=== PATIENT | female | born 1995 | race Caucasian/White ===

== ENCOUNTER 2017-05-31 17:33 | Emergency (ER) | payer SELFPAY ==
[2017-05-31] MEDS ORDERED: Ondansetron INJ* 2 MG/ML VIAL IV ONE (18:01)
[2017-05-31] MEDS ORDERED: NS 0.9% 1000 ML* 1,000 ML IV ONE (18:01)
[2017-05-31] MEDS ORDERED: Lidocaine 1% MPF* 2 ML VIAL INJ ONE (18:54)
[2017-05-31] MEDS ORDERED: Lidocaine 1% INJ* 10 MG/ML 30 ML SDV ONE (18:55)
[2017-05-31] MEDS ORDERED: Lidocaine 1%* 5 ML VIAL ONE (18:57)
--- NOTE | 2017-05-31 19:27 | ED ---
Rosita Somers Rebecca, scribed for Gordon Tan MD on 05/31/17 at 1755 . Substance Abuse/Use - HPI Summary HPI Summary: Pt is a 21 y/o F BIBA from [place] who presents to ED c/o N/V secondary to EtOH intoxication. Pt reports that she drank too much today, leading to the current sx. Additionally notes a laceration to the L elbow. Denies any other trauma. IV access obtained REMARKETING REP by EMS. - History Of Current Complaint Stated Complaint: ETOH Time Seen by Provider: 05/31/17 17:54 Hx Obtained From: Patient Ingestion History: Type/Name Of Drug - EtOH Overdose Characteristics: Oral Timing Of Abuse: Binge Use - Today Character: Other - Nauseous Associated Signs And Symptoms: Nausea, Vomiting, Other: - Laceration to the L elbow - Allergies/Home Medications Allergies/Adverse Reactions: Allergies Allergy/AdvReac Type Severity Reaction Status Date / Time No Known Allergies Allergy Verified 05/31/17 18:20 PMH/Surg Hx/FS Hx/Imm Hx Endocrine/Hematology History: Denies: Hx Diabetes Cardiovascular History: Denies: Hx Coronary Artery Disease, Hx Hypertension GI History: Reports: Other GI Disorders - Hx colitis Infectious Disease History: No Infectious Disease History: Denies: Traveled Outside the [place] in Last 30 Days - Family History Known Family History: Positive: Other - Dementia (father) - Social History Occupation: Student Substance Use Type: Reports: None Smoking Status (MU): Never Smoked Tobacco Review of Systems Positive: Vomiting, Nausea Positive: Other - Laceration to the L elbow Positive: Other - EtOH intoxication All Other Systems Reviewed And Are Negative: Yes Physical Exam - Summary Physical Exam Summary: General: well-appearing, no pain distress Skin: warm, color reflects adequate perfusion, dry, 2 cm long 3 mm wide partial thickness skin evulsion surrounded with some surrounding abrasion Head: normal Eyes: EOMI, CELENA ENT: normal Neck: supple, nontender Respiratory: CTA, breath sounds present Cardiovascular: RRR Musculoskeletal: normal, strength/ROM intact Neurological: normal, sensory/motor intact, awake and A&Ox3 Psychological: affect/mood appropriate Triage Information Reviewed: Yes Vital Signs On Initial Exam: Initial Vitals Temp Pulse Resp BP Pulse Ox 98.8 F 90 16 109/69 99 05/31/17 17:58 05/31/17 17:58 05/31/17 17:58 05/31/17 17:58 05/31/17 17:58 Vital Signs Reviewed: Yes Procedures - Laceration/Wound Repair 1 Location: upper extremity Description: Linear Anesthesia: Local, 1.0% Length, Depth and Shape: 2CM LONG BY 3MM WIDE SKIN AVULSION LEFT FOREARM Betadine Prep?: No - CLEANED WITH SHUR CLENS Laceration/Wound Explored: clean Closure: Single Layer Debridement: NONE Suture Type: Prolene - 5-0 Number of Sutures: 4 Layer Closure?: No Sterile Dressing Applied?: Yes Diagnostics - Vital Signs Vital Signs Temp Pulse Resp BP Pulse Ox 05/31/17 18:18 20 05/31/17 18:14 16 05/31/17 17:58 98.8 F 90 16 109/69 99 - Laboratory Lab Statement: Any lab studies that have been ordered have been reviewed, and results considered in the medical decision making process. Re-Evaluation - Re-Evaluation First Eval Re-Evaluation Time: 18:52 Comment: Further evaluated the pt's elbow wound. Course/Dx - Course Course Of Treatment: WELL IN ED. LACERATION SUTURED. TD UTD. DISCHARGE HOME STABLE. NO CRITICAL CARE TIME. - Diagnoses Provider Diagnoses: Alcohol intoxication, Laceration of left forearm Discharge - Discharge Plan Condition: Stable Disposition: HOME Patient Education Materials: Alcohol Intoxication (ED), Laceration (ED), Care For Your Stitches (ED) Referrals: Non Staff,Doctor [Primary Care Provider] - Additional Instructions: FOLLOW UP WITH YOUR DOCTOR. SUTURES OUT IN 8-10 DAYS. RETURN TO THE EMERGENCY DEPARTMENT FOR ANY WORSENING OF YOUR CONDITION OR QUESTIONS OR CONCERNS. The documentation as recorded by the Rosita norton Rebecca accurately reflects the service I personally performed and the decisions made by me, Gordon Tan MD.
== END 2017-05-31 20:18 | disposition home or self-care (01) ==
LOC: ED 17:33
DX: S51.812A Laceration without foreign body of left forearm, initial encounter (principal); R11.2 Nausea with vomiting, unspecified; F10.129 Alcohol abuse with intoxication, unspecified; X58.XXXA Exposure to other specified factors, initial encounter; Y93.9 Activity, unspecified; Y92.9 Unspecified place or not applicable; Y99.9 Unspecified external cause status
CPT/HCPCS: 96374; 96375; 99282; J2001; J2405